=== PATIENT | female | born 1960 | race Caucasian/White ===

== ENCOUNTER 2017-11-01 18:20 | Emergency (ER) | payer OTHER ==
[~2017-11-01] VITALS: Ht 142.2 cm; Wt 59.0 kg
[~2017-11-01 18:20] MED LIST: AMLODIPINE BESYL5 MG PO; BENTYL20 MG PO; CALCIUM + VITA1 EACH PO; GOLYTELY SOLU4000 ML PO; ISOSORBIDE MONO30 MG PO; NITROGLYCERIN0.4 MG SL; NORCO 5-325 TA1 EACH PO; OMEPRAZOLE20 MG PO; PEPCID20 MG PO; PLAVIX75 MG PO; VICODIN ES 7.51 EAC1 PO; VITAMIN B12-FO1 EACH PO; VITAMIN D-32000 UNI1 PO; ZOFRAN ODT4 MG PO; ZOFRAN4 MG PO; ZOFRAN8 MG PO; ZOVIRAX30 GM TOP
[2017-11-01] MEDS ORDERED: PROAIR HFA8.5 GM INH (18:30)
== END 2017-11-01 20:25 | disposition home or self-care (01) ==
LOC: ED 18:20
DX: R51 Headache (principal); K21.9 Gastro-esophageal reflux disease without esophagitis; I25.2 Old myocardial infarction; F17.200 Nicotine dependence, unspecified, uncomplicated; Z90.710 Acquired absence of both cervix and uterus; Z98.890 Other specified postprocedural states; Z88.6 Allergy status to analgesic agent; Z88.8 Allergy status to other drugs, medicaments and biological substances; Z88.1 Allergy status to other antibiotic agents; Z79.899 Other long term (current) drug therapy
CPT/HCPCS: 96361; 96374; 96375; 99282; J1200; J2765; J2930; J7030

== ENCOUNTER 2020-05-17 06:48 | Day surgery (SDC) | payer MEDICARE, MEDICAID, OTHER ==
[~2020-05-17] VITALS: Ht 142.2 cm; Wt 76.2 kg
[~2020-05-17 06:48] MED LIST changes: +B-12 DOTS500 MCG PO; +PROAIR HFA8.5 GM INH
--- NOTE | 2020-05-17 08:38 | NUR ---
05/17/20 0838 Mildred Hare 5413-PATIENT ARRIVED TO PACU ON 3L NC PLACED ON 2L NC. RR EVEN. PATIENT LAYING LEFT LATERAL. REACTIVE TO VERBAL STIMULI SLIGHTLY OPENS EYES TO NAME. REMAINS VERY DROWSY. PASSING GAS. ABDOMEN SOFT. IVF INFUSING.
--- NOTE | 2020-05-17 09:39 | NUR ---
PT IS BACK TO DS FROM PACU. SHE IS BACK TO WAKE UP A LITTLE MORE BEFORE GOING HOME. SHE HAS WATER ON BESIDE TABLE. CALL LIGHT WITHIN REACH. REQUESTING MORE CRACKERS.
--- NOTE | 2020-05-17 10:38 | NUR ---
PT IS STILL DROWSY, SHE IS TOLERATING WATER AND CRACKERS, BUT STILL REPORTS BEING NAUSEATED. PT WOULD LIKE TO TRY GETTING DRESSED.
--- NOTE | 2020-05-17 10:54 | OR ---
[facility] [place] [facility] [address], [place] [address] Signed DATE OF OPERATION: 05/17/2020 SURGEON: Maya Reilly MD PREOPERATIVE DIAGNOSES: 1. Personal history of colonic polyps. 2. Tattoo at 15 cm. 3. Internal hemorrhoids. 4. Diverticulosis. 5. Lifelong chronic constipation. POSTOPERATIVE DIAGNOSES: 1. Moderate sigmoid diverticulosis. 2. Severe angulation at 15 cm (tattoo). 3. Yupzrhi-ku-mmqsdzce internal hemorrhoids. PROCEDURES: Colonoscopy without biopsy to hepatic flexure with gastroscope. ESTIMATED BLOOD LOSS: None. INDICATIONS: Kathe is a 60-year-old female, who has been to us three previous times in 2013, 2013, and in 2016 for colonoscopies. She has had adenomatous polyps removed. We also left a tattoo at 15 cm. The pathology actually came back quite fine from that biopsy at 15 cm. We know she has internal hemorrhoids along with her diverticulosis. She is now coming every 5 years for followup colonoscopy. There is no family history of colon cancer or polyps in her family. She does talk about her lifelong constipation. She had been over to [facility] for cardiac evaluation as well. We discussed that in some detail. Unfortunately, she has not taken any of her medications in the last month. She presents today for her colonoscopy. In the office, I gave her a pamphlet on endoscopy and she understands the nature of that test quite well. She knows there is risk including, but not limited to gas bloating, crampy abdominal pain, bleeding, perforation requiring surgery, and missed diagnosis. She also understands the need for IV conscious sedation. She had expressed understanding and wished to proceed. DESCRIPTION OF PROCEDURE: Kathe was taken into our endoscopy suite and placed in the left lateral decubitus position. She was given a total of 10 mg of Versed and 200 mcg of fentanyl to cover the Electronically Signed By: MAYA REILLY MD 05/17/20 1054 PATIENT NAME: KATHE BANKS OPERATIVE REPORT DATE OF : 60 REPORT #: [id number] PHYSICIAN: MAYA REILLY MD PCP: BASHIR CAMARENA REPORT IS CONFIDENTIAL AND NOT TO BE RELEASED WITHOUT AUTHORIZATION [facility] [address] [place] [id number] Signed case. Unfortunately, she has developed severe angulation at 15 cm near the tattoo. We initially did our digital rectal exam and this was unremarkable. The adult colonoscope had been introduced and advanced up to the 15 cm. We spent significant amount of time trying to pass the scope through this area. We had moved Kathe into the supine position and back in the left lateral decubitus position with additional sedation and abdominal compression, never could get the adult colonoscope through this area. We switched out the adult colonoscope to the adult gastroscope. Again, it took a few minutes, but eventually we got through the area at 15 cm and then the colon opened up nicely and we passed the scope right up to the handle all the way to the hepatic flexure. Her prep was quite excellent. We could see down much of the right colon. We could not see the ileocecal valve or the cecum itself. The scope was then slowly withdrawn. Again, she has moderate diverticulosis in the sigmoid colon. She has a severe angulation at 15 cm. The rectum itself was unremarkable. Upon retroflexion of scope, she does have minimal to moderate internal hemorrhoid columns. After this, the gas been suctioned out and the gastroscope removed. Overall, Kathe tolerated her procedure, but she definitely would be better served with monitored anesthesia care and propofol infusion in the future. RECOMMENDATIONS: Kathe will follow up my office in 7 to 14 days to review the results. We will order an outpatient barium enema to evaluate the right colon. In 5 years, she will need a repeat colonoscopy with propofol infusion and hopefully, the adult gastroscope was passed at that time. Maya Reilly MD [facility]/MOD[facility] /[id number] cc: MD Tamiko Pedro PA Copies: MAYA REILLY MD Electronically Signed By: MAYA REILLY MD 05/17/20 1054 PATIENT NAME: KATHE BANKS OPERATIVE REPORT DATE OF : 60 REPORT #: [id number] PHYSICIAN: MAYA REILLY MD PCP: BASHIR CAMARENA REPORT IS CONFIDENTIAL AND NOT TO BE RELEASED WITHOUT AUTHORIZATION [address] [address] Signed TAMIKO HARRIS ~ Electronically Signed By: MAYA REILLY MD 05/17/20 1054 PATIENT NAME: JOCELYNKATHE OPERATIVE REPORT DATE OF : 60 REPORT #: [id number] PHYSICIAN: MAYA REILLY MD PCP: BASHIR CAMARENA REPORT IS CONFIDENTIAL AND NOT TO BE RELEASED WITHOUT AUTHORIZATION
== END 2020-05-17 10:50 | disposition home or self-care (01) ==
LOC: DS 06:48 → OPS 06:48 → DS 08:15 → OPS 08:15
PROVIDERS: Colon & Rectal Surgery
PROC: 0DJD8ZZ Inspection of Lower Intestinal Tract, Via Natural or Artificial Opening Endoscopic (ICD-10-PCS; principal; 2020-05-17 08:15)
DX: Z12.11 Encounter for screening for malignant neoplasm of colon (principal); K64.8 Other hemorrhoids; K57.30 Diverticulosis of large intestine without perforation or abscess without bleeding; K21.9 Gastro-esophageal reflux disease without esophagitis; E78.5 Hyperlipidemia, unspecified; Z86.010 Personal history of colon polyps; Z87.891 Personal history of nicotine dependence; Z79.899 Other long term (current) drug therapy; Z88.6 Allergy status to analgesic agent; Z88.8 Allergy status to other drugs, medicaments and biological substances; Z88.2 Allergy status to sulfonamides
CPT/HCPCS: 99153; G0500; J2250; J2405; J3010; J7121

== ENCOUNTER 2022-03-31 20:32 | Emergency (ER) | payer MEDICARE, MEDICAID ==
[~2022-03-31] VITALS: Ht 142.2 cm; Wt 76.2 kg
[2022-03-31] MEDS ORDERED: VITAMIN B122500 MC1 PO (21:00)
[2022-03-31] MEDS ORDERED: CLARITIN10 MG PO (21:01)
[2022-03-31] MEDS ORDERED: SYMBICORT 80-10.2 GM INH (21:02)
[2022-03-31] MEDS ORDERED: PROAIR RESPICL90 MCG IH (21:03)
[2022-03-31] MEDS ORDERED: ONDANSETRON ODT8 MG PO (22:37)
[2022-03-31] MEDS ORDERED: PROTONIX40 MG PO (22:37)
[2022-03-31] MEDS ORDERED: CARAFATE1 GM PO (22:37)
[2022-03-31] MEDS ORDERED: ULTRAM50 MG PO (22:37)
== END 2022-03-31 23:51 | disposition home or self-care (01) ==
LOC: ED 20:32
DX: K29.70 Gastritis, unspecified, without bleeding (principal); I25.2 Old myocardial infarction; J45.909 Unspecified asthma, uncomplicated; Z87.891 Personal history of nicotine dependence; Z88.8 Allergy status to other drugs, medicaments and biological substances; Z88.0 Allergy status to penicillin; Z88.2 Allergy status to sulfonamides; Z88.6 Allergy status to analgesic agent; Z79.899 Other long term (current) drug therapy
CPT/HCPCS: 36415; 74177; 80053; 83690; 85025; 96375; 96376; 99284-25; C9113; J1790; J2270; J7030; Q9967